=== PATIENT | female | born 1940 | race Caucasian/White ===

== ENCOUNTER 2022-09-18 12:24 | Outpatient (CLI) | payer MEDICARE ==
--- NOTE | 2022-09-18 19:55 | XRAY Report ---
PROCEDURE: Hand 3 View RT INDICATIONS: RT HAND RT WRIST PAIN/SWELLING TECHNIQUE: Three views of the hand(s) acquired. COMPARISON: None FINDINGS/IMPRESSION: Fairly diffuse periarticular lucency throughout the radiocarpal joints, carpal, carpometacarpal joint s, carpometacarpal joints, metacarpophalangeal joints, and interphalangeal joints (involved to varyin g degrees most pronounced in the metacarpophalangeal joints and carpocarpal joints. No acute osteophy morena. No large definite soft tissue pannus identified. Going deformities in the interphalangeal joints . 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 Reviewed by: Kelby Cosme MD on 09/18/2022 7:53 PM PDT Approved by: Kelby Cosme MD on 09/18/2022 7:53 PM PDT Station ID: [id number]
--- NOTE | 2022-09-18 19:55 | XRAY Report ---
PROCEDURE: Wrist 3 View RT INDICATIONS: RT HAND RT WRIST PAIN/SWELLING TECHNIQUE: Three views of the wrist were acquired. COMPARISON: None FINDINGS/IMPRESSION: Fairly diffuse periarticular lucency throughout the radiocarpal joints, carpal, carpometacarpal joint s, carpometacarpal joints, metacarpophalangeal joints, and interphalangeal joints (involved to varyin g degrees most pronounced in the metacarpophalangeal joints and carpocarpal joints. No acute osteophy morena. No large definite soft tissue pannus identified. Going deformities in the interphalangeal joints . 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 Reviewed by: Kelby Cosme MD on 09/18/2022 7:54 PM PDT Approved by: Kelby Cosme MD on 09/18/2022 7:54 PM PDT Station ID: [id number]
== END 2022-09-18 12:25 | disposition home or self-care (01) ==
LOC: DI 12:24
PROVIDERS: ATTEND Nurse Practitioner Gerontology
DX: M25.531 Pain in right wrist (principal); M79.641 Pain in right hand; R22.31 Localized swelling, mass and lump, right upper limb